=== PATIENT | male | born 2000 | race African-American/Black ===

== ENCOUNTER 2021-12-06 20:49 | Emergency (ER) | payer SELFPAY ==
[2021-12-06] MEDS ORDERED: Morphine 4 MG/ML VIAL ONE (21:49)
== END 2021-12-06 22:48 | disposition home or self-care (01) ==
LOC: CSHERS 20:49
DX: L02.31 Cutaneous abscess of buttock (principal)
CPT/HCPCS: 10060; 96372; J2270